=== PATIENT | female | born 1945 | race Two or more races ===

== ENCOUNTER 2024-04-17 16:23 | Emergency (ER) | payer OTHER ==
[~2024-04-17] VITALS: Ht 160 cm; Wt 40.0 kg
[2024-04-17 17:19] LABS: Basophils # (auto) 0.1 10 ^3/uL (0-0.2); Basophils % (auto) 0.7 % (0.0-2.0); Eosinophils # (auto) 0.4 10 ^3/uL (0-0.8); Eosinophils % (auto) 2.8 % (0.0-7.0); Hematocrit 32.7 % (36.0-46.0); Hemoglobin 10.6 g/dL (12.2-16.2); Lymphocytes % (auto) 16.2 % (10.0-50.0); Mean Corpuscular Hemoglobin 29.3 pg (28.0-32.0); Mean Corpuscular Hgb Conc. 32.5 g/dL (32.0-36.0); Mean Corpuscular Volume 90.2 fL (80.0-100.0); Monocytes % (auto) 8.4 % (0.0-12.0); Neutrophils # (auto) 8.9 10 ^3/uL (1.6-8.6); Neutrophils % (auto) 71.9 % (37.0-80.0); Nucleated Red Blood Cells % 0.1 %; Red Blood Cells 3.63 10^6/uL (4.0-5.20); White Blood Cell 12.4 10^3/uL (4.4-10.8)
[2024-04-17 17:33] LABS: INR 1.02 (0.9-1.15); Partial Thromboplastin Time 20.1 SEC (24.5-34.5); Prothrombin Time 10.8 sec (9.3-11.8)
[2024-04-17 17:35] LABS: Alanine Aminotransferase 19 U/L (7-40); Albumin 3.5 g/dL (3.2-4.8); Alkaline Phosphatase 57 U/L (46-116); Anion Gap 11 (5-15); Aspartate Aminotransferase 20 U/L (13-40); BUN/Creatinine Ratio 30.6 (10.0-20.0); Bilirubin, Total 0.3 mg/dL (0.2-1.0); Blood Alcohol < 3.0 mg/dL (<10); Blood Urea Nitrogen 30 mg/dL (9-23); Carbon Dioxide 21 mmol/L (20-30); Chloride 98 mmol/L (98-107); Glucose 118 mg/dL (74-106); Magnesium 1.3 mg/dL (1.6-2.6); Potassium 4.5 mmol/L (3.5-5.1); Sodium 130 mmol/L (136-145); Total Protein 5.3 g/dL (5.7-8.2)
[2024-04-17 17:48] VITALS: PULSE 83; RESP 12; O2SAT 97
[2024-04-17 17:53] LABS: Lactic Acid w/Reflex 5.2 mmol/L (0.4-2.0)
[2024-04-17] MEDS: SODIUM CHLORIDE 0.9% 1,550 ML IV ONE (18:13)
[2024-04-17 18:16] LABS: Urine Bacteria FEW /hpf (None Seen); Urine Blood Negative /uL (Negative); Urine Clarity Turbid (Clear); Urine Color Colorless (Yellow); Urine Hyaline Cast MOD /lpf (0 - 2); Urine Mucus FEW (None Seen); Urine Protein, UAD Negative (Negative); Urine Specific Gravity 1.011 (1.001-1.035); Urine Urobilinogen Normal (Negative); Urine WBC 109 /hpf (0 - 5); Urine pH 5.5 (5.0-9.0)
[2024-04-17 18:23] LABS: Amphetamine Screen, Urine Neg (NEGATIVE); Benzodiazephine Screen, Urine Neg (NEGATIVE)
[2024-04-17 18:24] LABS: Barbiturate Scree,Urine Neg (NEGATIVE); Cannabinoid Screen, Urine Neg (NEGATIVE); Cocaine Screen, Urine Neg (NEGATIVE); Opiate Scree,Urine Pos (NEGATIVE); Phencyclidine Screen, Urine Neg (NEGATIVE)
[2024-04-17] MEDS ORDERED: VANCOMYCIN PER PHARMACY 0 MG IV SCH (18:30)
[2024-04-17] MEDS: CIPROFLOXACIN 400MG/200ML 200 ML IV ONE (19:15)
[2024-04-17 19:30] VITALS: PULSE 82; RESP 17; O2SAT 95
[2024-04-17] MEDS ORDERED: VANCOMYCIN 1GM/200ML 200 ML IV ONE (21:00)
[2024-04-17] MEDS: VANCOMYCIN 750mg/150ml 150 ML IV SCH (21:09)
[2024-04-17] MEDS ORDERED: VANCOMYCIN 1GM/200ML 200 ML IV SCH (22:00)
[2024-04-18] MEDS: DEXTROSE (50%) 50ML SYRG IV ONE (04:39)
[2024-04-18] MEDS: DEXTROSE 50% SYRINGE 0 ML IV ONE (04:39)
[2024-04-18] MEDS: hydrALAZINE HCL 20 MG/ML VL IV ONE (05:00)
[2024-04-18 06:05] VITALS: BP 141/61; PULSE 95; RESP 18; TEMP 97.9; O2SAT 96
== END 2024-04-18 06:20 | disposition short-term general hospital (02) ==
LOC: ER 16:23 → EDBD 16:23 → ER 04-18 06:20
DX: G93.41 Metabolic encephalopathy (principal); A41.9 Sepsis, unspecified organism; I95.9 Hypotension, unspecified; N39.0 Urinary tract infection, site not specified
CPT/HCPCS: 36415; 70450; 71045; 80053; 80307; 80320; 81001; 83605; 83735; 84484; 85025; 85379; 85610; 85730; 87040; 87086; 87088; 87186; 93005; 96365; 96368; 96375; 99285; J0744; J3370; J7030; J7040; J7042

== ENCOUNTER 2024-05-17 11:53 | Inpatient (IN) | payer OTHER ==
[~2024-05-17] VITALS: Ht 152.4 cm; Wt 54.0 kg
[2024-05-17] MEDS: ALBUTEROL SULF 2.5 MG/0.5ML(0.5%) NEB SOLN NEB ONE (12:56)
[2024-05-17] MEDS: IPRATROPIUM BROM 0.5 MG/2.5ML INH SOL NEB ONE (12:56)
[2024-05-17 13:05] LABS: Basophils # (auto) 0 10 ^3/uL (0-0.2); Basophils % (auto) 0.3 % (0.0-2.0); Eosinophils # (auto) 0 10 ^3/uL (0-0.8); Hematocrit 40.8 % (36.0-46.0); Hemoglobin 12.9 g/dL (12.2-16.2); Lymphocytes # (auto) 1.1 10 ^3/uL (0.4-5.4); Lymphocytes % (auto) 8.3 % (10.0-50.0); Mean Corpuscular Hemoglobin 30.1 pg (28.0-32.0); Mean Corpuscular Hgb Conc. 31.6 g/dL (32.0-36.0); Mean Corpuscular Volume 95.4 fL (80.0-100.0); Monocytes # (auto) 0.9 10 ^3/uL (0-1.3); Monocytes % (auto) 6.6 % (0.0-12.0); Neutrophils # (auto) 11.6 10 ^3/uL (1.6-8.6); Neutrophils % (auto) 84.8 % (37.0-80.0); Red Blood Cells 4.28 10^6/uL (4.0-5.20); Red Cell Distribution Width 17.4 % (11.8-14.3); White Blood Cell 13.7 10^3/uL (4.4-10.8)
[2024-05-17 13:06] VITALS: PULSE 55; RESP 31; O2SAT 86
[2024-05-17] MEDS: methylPREDNISolone SOD SUCC 125 MG/2 ML VL IV ONE (13:12)
[2024-05-17] MEDS: SODIUM CHLORIDE 0.9% 1,550 ML IV ONE (13:21)
[2024-05-17 13:27] LABS: INR 1.06 (0.9-1.15); Partial Thromboplastin Time 24.2 SEC (24.5-34.5); Prothrombin Time 11.2 sec (9.3-11.8)
[2024-05-17 13:31] LABS: Alanine Aminotransferase 24 U/L (7-40); Albumin 4.6 g/dL (3.2-4.8); Alkaline Phosphatase 105 U/L (46-116); Anion Gap 24 (5-15); Aspartate Aminotransferase 41 U/L (13-40); BUN/Creatinine Ratio 38.8 (10.0-20.0); Bilirubin, Total 0.4 mg/dL (0.2-1.0); Calcium 9.8 mg/dL (8.7-10.4); Carbon Dioxide 14 mmol/L (20-30); Chloride 112 mmol/L (98-107); Glucose 338 mg/dL (74-106); Magnesium 2.3 mg/dL (1.6-2.6); Sodium 150 mmol/L (136-145)
[2024-05-17 13:32] LABS: Total Protein 8.1 g/dL (5.7-8.2)
[2024-05-17 13:36] LABS: Blood Urea Nitrogen 120 mg/dL (9-23)
[2024-05-17 13:37] LABS: Potassium 6.4 mmol/L (3.5-5.1)
[2024-05-17 13:38] LABS: Lactic Acid w/Reflex 3.6 mmol/L (0.4-2.0)
[2024-05-17 14:00] VITALS: BP 59/28; PULSE 55; RESP 31; TEMP 98; O2SAT 90
[2024-05-17] MEDS: SODIUM BICARB 8.4% 50Meq/50ml SYR Vial IV ONE ×2 (14:15→17:44)
[2024-05-17] MEDS: CALCIUM GLUC 1,000mg/50ml-NS 50 ML IV ONE (14:15)
[2024-05-17] MEDS: DEXTROSE (50%) 50ML SYRG IV ONE (14:16)
[2024-05-17] MEDS: InsuLIN REG 1unit/0.01ml Soln (100units/ml) IV ONE (14:17)
[2024-05-17] MEDS: ONDANSETRON HCL 4 MG/2 ML VIAL IV ONE (14:43)
[2024-05-17 15:10] LABS: COVID19 ANTIGEN SOFIA FIA NEGATIVE (NEGATIVE); Rapid Influenza A Negative (Negative); Rapid Influenza B Negative (Negative)
[2024-05-17] MEDS: NOREPINEPHRINE 8 MG/250ML KIT 250 ML IV SCH (15:13)
[2024-05-17] MEDS: PIPERACILLIN-TAZO 4.5GM 100 ML IV ONE (15:14)
[2024-05-17 16:48] VITALS: BP 122/52; PULSE 78; O2SAT 100
[2024-05-17] MEDS: VANCOMYCIN 1GM/200ML 200 ML IV ONE ×2 (16:50→17:19)
[2024-05-17 17:14] LABS: Base Excess -8.8 mmol/L (-2.0-2.0)
[2024-05-17] MEDS ORDERED: NITROGLYCERIN 0.4 MG SL TAB SL PRN (17:15)
[2024-05-17] MEDS ORDERED: VANCOMYCIN PER PHARMACY 0 MG IV SCH (17:15)
[2024-05-17] MEDS ORDERED: ACETAMINOPHEN 325 MG TAB PO PRN (17:15)
[2024-05-17] MEDS ORDERED: SODIUM CHLORIDE 0.9% 1,000 ML IV SCH (17:15)
[2024-05-17] MEDS: ENOXAPARIN SOD 100 MG/1 ML SYRINGE SC ONE (17:20)
[2024-05-17] MEDS ORDERED: DEXTROSE (50%) 50ML SYRG IV PRN (17:30)
[2024-05-17] MEDS: PANTOPRAZOLE 40 MG/10 ML VIAL INJ IV ONE (17:43)
[2024-05-17] MEDS: SOD CHL 0.45% 1,000 ML IV ONE (17:58)
[2024-05-17] MEDS ORDERED: DexAMETHasone SOD PHOS 10MG/1ML VIAL INJ IV SCH (18:00)
[2024-05-17] MEDS: DexAMETHasone SOD PHOS 10MG/1ML VIAL INJ IV SCH (18:03)
[2024-05-17] MEDS: IPRATROPIUM BROM 0.5 MG/2.5ML INH SOL NEB SCH (18:06)
[2024-05-17] MEDS: ALBUTEROL SULF 2.5 MG/0.5ML(0.5%) NEB SOLN NEB SCH (18:06)
[2024-05-17 18:07] VITALS: BP 117/30; PULSE 76; O2SAT 92
[2024-05-17] MEDS: ACCU-CHEK COMFORT CURVE STRIP VI SCH (18:08)
[2024-05-17] MEDS: INSULIN DRIP 100 UNIT/100ML 100 ML IV SCH (18:08)
[2024-05-17 18:54] LABS: Anion Gap 18 (5-15); Carbon Dioxide 20 mmol/L (20-30); Chloride 116 mmol/L (98-107); Potassium 5.2 mmol/L (3.5-5.1); Sodium 154 mmol/L (136-145)
[2024-05-17 18:55] LABS: Calcium 9.1 mg/dL (8.7-10.4)
[2024-05-17 18:56] LABS: INR 1.13 (0.9-1.15); Prothrombin Time 11.9 sec (9.3-11.8)
[2024-05-17 19:00] LABS: BUN/Creatinine Ratio 29.1 (10.0-20.0)
[2024-05-17 19:18] LABS: Magnesium 2.2 mg/dL (1.6-2.6)
[2024-05-17 19:20] LABS: Phosphorus 7.9 mg/dL (2.4-5.1)
[2024-05-17 19:28] LABS: Blood Urea Nitrogen 83 mg/dL (9-23); Glucose 475 mg/dL (74-106); Lactic Acid w/Reflex 3.5 mmol/L (0.4-2.0)
[2024-05-17 20:03] LABS: Urine Bacteria MOD /hpf (None Seen); Urine Blood 2+ /uL (Negative); Urine Clarity Ex.Turbid (Clear); Urine Color Light-Brown (Yellow); Urine Mucus FEW (None Seen); Urine Protein, UAD 1+ (Negative); Urine Specific Gravity 1.016 (1.001-1.035); Urine Urobilinogen Normal (Negative); Urine WBC 238 /hpf (0 - 5)
[2024-05-17 20:09] LABS: Creatinine, Urine 47.51 mg/dL (30.0-125.0)
[2024-05-17 20:11] VITALS: BP 63/18; PULSE 63; O2SAT 96
[2024-05-17] MEDS: CEFEPIME 2GM/50ML NS 50 ML IV SCH (20:43)
[2024-05-17 22:23] VITALS: BP 129/33; PULSE 102; O2SAT 97
[2024-05-17 23:37] LABS: Chloride 117 mmol/L (98-107); Potassium 5.3 mmol/L (3.5-5.1); Sodium 158 mmol/L (136-145)
[2024-05-17 23:38] LABS: Anion Gap 13 (5-15); Carbon Dioxide 28 mmol/L (20-30)
[2024-05-17 23:43] LABS: BUN/Creatinine Ratio 34.3 (10.0-20.0); Glucose 313 mg/dL (74-106)
[2024-05-17 23:45] LABS: Blood Urea Nitrogen 103 mg/dL (9-23)
[2024-05-18] VITALS (15 sets, daily range): BP systolic 110–142; BP diastolic 30–46; PULSE 64–111; RESP 16–30; O2SAT 87–100
[2024-05-18] MEDS: DexAMETHasone SOD PHOS 10MG/1ML VIAL INJ IV SCH (02:07)
[2024-05-18 06:18] LABS: Alanine Aminotransferase 187 U/L (7-40); Albumin 3.9 g/dL (3.2-4.8); Alkaline Phosphatase 93 U/L (46-116); Anion Gap 18 (5-15); Aspartate Aminotransferase 390 U/L (13-40); BUN/Creatinine Ratio 26.7 (10.0-20.0); Carbon Dioxide 22 mmol/L (20-30); Chloride 118 mmol/L (98-107); Glucose 177 mg/dL (74-106); Sodium 158 mmol/L (136-145)
[2024-05-18 06:19] LABS: Bilirubin, Total 0.2 mg/dL (0.2-1.0)
[2024-05-18 06:33] LABS: Blood Urea Nitrogen 83 mg/dL (9-23); Potassium 5.6 mmol/L (3.5-5.1)
[2024-05-18] MEDS: VASOPRESSIN 20 UNITS in SODIUM CHL 0.9% 99 ML IV SCH (07:25)
[2024-05-18] MEDS: SODIUM ZIRCONIUM CYCL 10 GM PAK PO ONE (08:15)
[2024-05-18] MEDS ORDERED: SOD CHL 0.45% 1,000 ML IV SCH (08:15)
[2024-05-18] MEDS: ALBUTEROL SULF 2.5 MG/0.5ML(0.5%) NEB SOLN NEB ONE (08:15)
[2024-05-18] MEDS: CALCIUM GLUC 1,000mg/50ml-NS 50 ML IV ONE (08:17)
[2024-05-18] MEDS ORDERED: LACTATED RINGER'S 1,000 ML IV SCH (08:30)
[2024-05-18] MEDS: SODIUM BICARB 8.4% 50Meq/50ml SYR INJ IV ONE ×2 (08:31→09:38)
[2024-05-18] MEDS: DEXTROSE (50%) 50ML SYRG IV ONE (08:32)
[2024-05-18 08:47] LABS: Basophils # (auto) 0 10 ^3/uL (0-0.2); Basophils % (auto) 0.1 % (0.0-2.0); Eosinophils # (auto) 0 10 ^3/uL (0-0.8); Eosinophils % (auto) 0.1 % (0.0-7.0); Hematocrit 35.2 % (36.0-46.0); Hemoglobin 11.2 g/dL (12.2-16.2); Lymphocytes % (auto) 4.9 % (10.0-50.0); Mean Corpuscular Hemoglobin 29.8 pg (28.0-32.0); Mean Corpuscular Hgb Conc. 31.8 g/dL (32.0-36.0); Mean Corpuscular Volume 93.8 fL (80.0-100.0); Monocytes # (auto) 1.5 10 ^3/uL (0-1.3); Monocytes % (auto) 7.4 % (0.0-12.0); Neutrophils # (auto) 17.4 10 ^3/uL (1.6-8.6); Neutrophils % (auto) 87.5 % (37.0-80.0); Red Blood Cells 3.75 10^6/uL (4.0-5.20); Red Cell Distribution Width 16.8 % (11.8-14.3); White Blood Cell 19.9 10^3/uL (4.4-10.8)
[2024-05-18] MEDS: INSULIN LANTUS (GLARGINE) 1 /0.01ml (100units/ml) SC ONE (09:38)
[2024-05-18 09:46] LABS: Platelet Estimate Decreased
[2024-05-18] MEDS: D5W/SOD CHL 0.45% 1,000 ML IV SCH (09:54)
[2024-05-18] MEDS: PANTOPRAZOLE 40 MG/10 ML VIAL INJ IV SCH (10:03)
[2024-05-18] MEDS ORDERED: D5W 5% 1,000 ML IV SCH (12:00)
[2024-05-18] MEDS: SODIUM CHLORIDE 0.9% 1,000 ML IV ONE (12:29)
[2024-05-18] MEDS: D5W 5% 1,000 ML IV SCH ×2 (12:41→14:15)
[2024-05-18] MEDS: DOXYCYCLINE 100MG/250ML 250 ML IV SCH (12:42)
[2024-05-18 13:06] LABS: Basophils # (auto) 0 10 ^3/uL (0-0.2); Basophils % (auto) 0.1 % (0.0-2.0); Eosinophils # (auto) 0 10 ^3/uL (0-0.8); Eosinophils % (auto) 0.1 % (0.0-7.0); Lymphocytes # (auto) 0.8 10 ^3/uL (0.4-5.4); Lymphocytes % (auto) 3.9 % (10.0-50.0); Mean Corpuscular Hemoglobin 29.9 pg (28.0-32.0); Mean Corpuscular Hgb Conc. 32.4 g/dL (32.0-36.0); Mean Corpuscular Volume 92.2 fL (80.0-100.0); Monocytes # (auto) 1.8 10 ^3/uL (0-1.3); Monocytes % (auto) 8.6 % (0.0-12.0); Neutrophils # (auto) 18.1 10 ^3/uL (1.6-8.6); Neutrophils % (auto) 87.3 % (37.0-80.0); Red Blood Cells 3.69 10^6/uL (4.0-5.20); Red Cell Distribution Width 16.7 % (11.8-14.3); White Blood Cell 20.7 10^3/uL (4.4-10.8)
[2024-05-18 13:17] LABS: Chloride 119 mmol/L (98-107); Potassium 4.5 mmol/L (3.5-5.1)
[2024-05-18 13:18] LABS: Anion Gap 17 (5-15); Calcium 9.3 mg/dL (8.7-10.4); Carbon Dioxide 25 mmol/L (20-30)
[2024-05-18 13:23] LABS: BUN/Creatinine Ratio 33.7 (10.0-20.0); Glucose 270 mg/dL (74-106)
[2024-05-18 13:41] LABS: Sodium 161 mmol/L (136-145)
[2024-05-18 13:42] LABS: Blood Urea Nitrogen 98 mg/dL (9-23)
[2024-05-18] MEDS: AMIODARONE BOLUS KIT 100 ML IV ONE (13:49)
[2024-05-18 14:03] LABS: Lipase 33 U/L (12-53)
[2024-05-18] MEDS: AMIODARONE 450mg/250ml AE 250 ML IV SCH ×2 (14:10→21:36)
[2024-05-18] MEDS ORDERED: ENOXAPARIN SOD 60 MG/0.6 ML SYRINGE SC SCH (17:00)
[2024-05-18] MEDS: INSULIN DRIP 100 UNIT/100ML 100 ML IV SCH (17:02)
[2024-05-18] MEDS: LIDOCAINE 1% (LOCAL ANESTH.) PF 5ml SDV ID ONE (17:54)
[2024-05-18 18:38] LABS: Chloride 115 mmol/L (98-107); Potassium 3.2 mmol/L (3.5-5.1)
[2024-05-18 18:39] LABS: Anion Gap 13 (5-15); Calcium 7.9 mg/dL (8.7-10.4); Carbon Dioxide 23 mmol/L (20-30)
[2024-05-18 18:44] LABS: BUN/Creatinine Ratio 33.3 (10.0-20.0)
[2024-05-18 19:22] LABS: Sodium 151 mmol/L (136-145)
[2024-05-18 19:24] LABS: Blood Urea Nitrogen 85 mg/dL (9-23); Glucose 425 mg/dL (74-106)
[2024-05-18] MEDS: SODIUM CHLOR 0.9% PF (SALINE LOCK) 10ML VIAL/SYR IV SCH (22:31)
[2024-05-19] VITALS (13 sets, daily range): PULSE 90–111; RESP 16–26; O2SAT 91–99
[2024-05-19 06:32] LABS: Basophils # (auto) 0 10 ^3/uL (0-0.2); Eosinophils # (auto) 0 10 ^3/uL (0-0.8)
[2024-05-19 06:34] LABS: Anion Gap 13 (5-15); Carbon Dioxide 21 mmol/L (20-30); Chloride 109 mmol/L (98-107); Potassium 2.9 mmol/L (3.5-5.1); Sodium 143 mmol/L (136-145)
[2024-05-19 06:35] LABS: Calcium 7.8 mg/dL (8.7-10.4)
[2024-05-19 06:37] LABS: Basophils % (auto) 0.1 % (0.0-2.0); Eosinophils % (auto) 0.1 % (0.0-7.0); Hematocrit 29.4 % (36.0-46.0); Hemoglobin 9.7 g/dL (12.2-16.2); Lymphocytes # (auto) 0.7 10 ^3/uL (0.4-5.4); Lymphocytes % (auto) 4.1 % (10.0-50.0); Mean Corpuscular Hgb Conc. 32.9 g/dL (32.0-36.0); Mean Corpuscular Volume 91.1 fL (80.0-100.0); Monocytes # (auto) 0.7 10 ^3/uL (0-1.3); Monocytes % (auto) 4.1 % (0.0-12.0); Neutrophils % (auto) 91.6 % (37.0-80.0); Nucleated Red Blood Cells % 0.8 %; Red Blood Cells 3.23 10^6/uL (4.0-5.20); Red Cell Distribution Width 16.7 % (11.8-14.3); White Blood Cell 17.4 10^3/uL (4.4-10.8)
[2024-05-19 06:39] LABS: Creatine Kinase IFCC 654 U/L (34-145); Uric Acid 10.3 mg/dL (3.1-7.8)
[2024-05-19 06:40] LABS: Glucose 271 mg/dL (74-106)
[2024-05-19] MEDS: INSULIN DRIP 100 UNIT/100ML 100 ML IV SCH (06:40)
[2024-05-19 06:45] LABS: Blood Urea Nitrogen 71 mg/dL (9-23)
[2024-05-19] MEDS ORDERED: INSULIN LANTUS (GLARGINE) 1 /0.01ml (100units/ml) SC SCH (07:00)
[2024-05-19] MEDS ORDERED: DEXTROSE (50%) 50ML SYRG IV PRN (07:15)
[2024-05-19] MEDS: POTASSIUM CHL 20MEQ/100ML 100 ML IV SCH (07:15)
[2024-05-19] MEDS: SOD CHL 0.45% 1,000 ML IV SCH ×2 (07:15→16:10)
[2024-05-19 07:17] LABS: BUN/Creatinine Ratio 31.1 (10.0-20.0)
[2024-05-19] MEDS: INSULIN LANTUS (GLARGINE) 1 /0.01ml (100units/ml) SC SCH (08:00)
[2024-05-19] MEDS: ACCU-CHEK COMFORT CURVE STRIP VI SCH (08:00)
[2024-05-19] MEDS: InsuLIN REG 1unit/0.01ml Soln (100units/ml) SC SCH (08:00)
[2024-05-19] MEDS: ENOXAPARIN SOD 30 MG/0.3 ML SYRINGE SC SCH (10:00)
[2024-05-19] MEDS: METOPROLOL TARTRATE 1MG/1ML-5ML VIAL IV ONE (11:52)
[2024-05-19 12:23] LABS: Urine Bacteria FEW /hpf (None Seen); Urine Blood 2+ /uL (Negative); Urine Budding Yeast MODERATE /hpf (None Seen); Urine Clarity Turbid (Clear); Urine Color Colorless (Yellow); Urine Protein, UAD 1+ (Negative); Urine Specific Gravity 1.014 (1.001-1.035); Urine Urobilinogen Normal (Negative); Urine WBC 104 /hpf (0 - 5); Urine pH 5.5 (5.0-9.0)
[2024-05-19 12:33] LABS: Creatinine, Urine 33.32 mg/dL (30.0-125.0)
[2024-05-19 13:33] LABS: Anion Gap 11 (5-15); Carbon Dioxide 20 mmol/L (20-30); Chloride 109 mmol/L (98-107); Potassium 3.6 mmol/L (3.5-5.1); Sodium 140 mmol/L (136-145)
[2024-05-19 13:34] LABS: Calcium 7.6 mg/dL (8.7-10.4)
[2024-05-19 13:38] LABS: Glucose 273 mg/dL (74-106)
[2024-05-19 13:39] LABS: BUN/Creatinine Ratio 36.7 (10.0-20.0); Blood Urea Nitrogen 69 mg/dL (9-23)
[2024-05-19 13:53] LABS: Magnesium 1.2 mg/dL (1.6-2.6)
[2024-05-19] MEDS: MAGNESIUM SULFATE 1GM/100ML 100 ML IV SCH ×2 (16:23→19:07)
[2024-05-19] MEDS: IPRATROPIUM BROM 0.5 MG/2.5ML INH SOL NEB SCH (18:37)
[2024-05-19] MEDS: LEVALBUTEROL HCL 1.25 MG/3 ML NEB NEB SCH (18:38)
[2024-05-19] MEDS: LABETALOL HCL 20 MG/4 ML VL IV PRN (23:35)
[2024-05-20] VITALS (14 sets, daily range): BP systolic 156; BP diastolic 70; PULSE 72–116; RESP 18–36; TEMP 98.5; O2SAT 93–100
[2024-05-20 04:51] LABS: Basophils # (auto) 0 10 ^3/uL (0-0.2); Eosinophils # (auto) 0 10 ^3/uL (0-0.8); Lymphocytes # (auto) 0.7 10 ^3/uL (0.4-5.4); Monocytes # (auto) 0.4 10 ^3/uL (0-1.3); White Blood Cell 15.1 10^3/uL (4.4-10.8)
[2024-05-20 04:52] LABS: Chloride 104 mmol/L (98-107); Potassium 2.9 mmol/L (3.5-5.1)
[2024-05-20 04:53] LABS: Anion Gap 10 (5-15); Basophils % (auto) 0.2 % (0.0-2.0); Carbon Dioxide 18 mmol/L (20-30); Hematocrit 25.8 % (36.0-46.0); Hemoglobin 8.6 g/dL (12.2-16.2); Lymphocytes % (auto) 4.5 % (10.0-50.0); Mean Corpuscular Hemoglobin 30.1 pg (28.0-32.0); Mean Corpuscular Hgb Conc. 33.3 g/dL (32.0-36.0); Mean Corpuscular Volume 90.4 fL (80.0-100.0); Monocytes % (auto) 2.5 % (0.0-12.0); Neutrophils % (auto) 92.8 % (37.0-80.0); Nucleated Red Blood Cells % 0.9 %; Red Blood Cells 2.86 10^6/uL (4.0-5.20); Red Cell Distribution Width 16.5 % (11.8-14.3)
[2024-05-20 04:57] LABS: Sodium 132 mmol/L (136-145)
[2024-05-20 04:59] LABS: BUN/Creatinine Ratio 29.7 (10.0-20.0); Magnesium 1.8 mg/dL (1.6-2.6)
[2024-05-20 05:01] LABS: Phosphorus 1.6 mg/dL (2.4-5.1)
[2024-05-20 05:12] LABS: Blood Urea Nitrogen 46 mg/dL (9-23); Glucose 415 mg/dL (74-106)
[2024-05-20 05:47] LABS: Chloride 110 mmol/L (98-107); Potassium 3.4 mmol/L (3.5-5.1); Sodium 139 mmol/L (136-145)
[2024-05-20 05:48] LABS: Anion Gap 10 (5-15); Carbon Dioxide 19 mmol/L (20-30)
[2024-05-20 05:49] LABS: Calcium 7.7 mg/dL (8.7-10.4)
[2024-05-20 05:53] LABS: BUN/Creatinine Ratio 27.8 (10.0-20.0); Blood Urea Nitrogen 44 mg/dL (9-23); Glucose 176 mg/dL (74-106)
[2024-05-20] MEDS: cloNIDine 0.1 mg/24hr 7 DAY PATCH TD ONE (09:45)
[2024-05-20] MEDS: MORPHINE SULFATE INJ 2 MG/ml SYRG IV PRN (09:50)
[2024-05-20] MEDS: ONDANSETRON HCL 4 MG/2 ML VIAL IV PRN (09:51)
[2024-05-20] MEDS: POTASSIUM CHL 20MEQ/100ML 100 ML IV ONE (10:23)
[2024-05-20] MEDS ORDERED: CLINIMIX PER PHARMACY 0 ML IV SCH (10:30)
[2024-05-20] MEDS ORDERED: MORPHINE SULFATE INJ 2 MG/ml SYRG IV PRN (10:30)
[2024-05-20] MEDS: METOPROLOL TARTRATE 25 MG TAB PO SCH (10:30)
[2024-05-20 10:37] LABS: Basophils # (auto) 0 10 ^3/uL (0-0.2); Eosinophils # (auto) 0 10 ^3/uL (0-0.8); Eosinophils % (auto) 0.1 % (0.0-7.0); Hematocrit 30.5 % (36.0-46.0); Hemoglobin 9.9 g/dL (12.2-16.2); Lymphocytes # (auto) 0.6 10 ^3/uL (0.4-5.4); Lymphocytes % (auto) 3.9 % (10.0-50.0); Mean Corpuscular Hemoglobin 28.9 pg (28.0-32.0); Mean Corpuscular Hgb Conc. 32.4 g/dL (32.0-36.0); Mean Corpuscular Volume 89.2 fL (80.0-100.0); Monocytes # (auto) 0.5 10 ^3/uL (0-1.3); Monocytes % (auto) 2.8 % (0.0-12.0); Neutrophils # (auto) 15.1 10 ^3/uL (1.6-8.6); Neutrophils % (auto) 93.2 % (37.0-80.0); Nucleated Red Blood Cells % 0.8 %; Red Blood Cells 3.41 10^6/uL (4.0-5.20); Red Cell Distribution Width 15.7 % (11.8-14.3); White Blood Cell 16.2 10^3/uL (4.4-10.8)
[2024-05-20] MEDS: ERTAPENEM SOD INJ 0.5 GM in SODIUM CHL 0.9% 50 ML IV SCH (11:30)
[2024-05-20] MEDS ORDERED: CIPR500T4 PO (18:41)
[2024-05-20] MEDS ORDERED: LISI-285 (18:41)
[2024-05-20] MEDS ORDERED: CYCL0.058 EACHEYE (18:41)
[2024-05-20] MEDS ORDERED: CLOT1CRE7 TOP (18:41)
[2024-05-20] MEDS ORDERED: ALEN70TA74 PO (18:41)
[2024-05-20] MEDS ORDERED: CICL160A2 INH (18:41)
[2024-05-20] MEDS ORDERED: ALBU1AER4 INH (18:41)
[2024-05-20] MEDS ORDERED: HYDR-4798 (18:41)
[2024-05-20] MEDS ORDERED: GABA-1250 PO (18:41)
[2024-05-20] MEDS ORDERED: TOPI25TA84 PO (18:41)
[2024-05-20] MEDS ORDERED: OXYB5TAB14 PO (18:41)
[2024-05-20] MEDS ORDERED: GLIP5TAB21 PO (18:41)
[2024-05-20] MEDS ORDERED: TRI05TP TOP (18:41)
[2024-05-20] MEDS ORDERED: ATEN50TA PO (18:41)
[2024-05-20] MEDS ORDERED: ATOR40TA52 PO (18:41)
[2024-05-20] MEDS ORDERED: CICL8SOL21 TOP (18:41)
[2024-05-20] MEDS ORDERED: CLOB0.055 TOP (18:41)
[2024-05-20] MEDS ORDERED: METF-372 PO (18:41)
[2024-05-20] MEDS ORDERED: OMEP1CAP70 PO (18:41)
[2024-05-20] MEDS ORDERED: ASPI81CH59 PO (20:02)
[2024-05-20] MEDS: SODIUM PHOSPHATES 20 MEQ in SODIUM CHL 0.9% 100 ML IV ONE (20:25)
[2024-05-20] MEDS: AMINO ACID INFUSION IN D10W 1,000 ML IV SCH (20:32)
[2024-05-21] VITALS (15 sets, daily range): BP systolic 158–167; BP diastolic 67–93; PULSE 70–84; RESP 14–20; TEMP 96.9–99.1; O2SAT 95–100
[2024-05-21 07:48] LABS: Alanine Aminotransferase 197 U/L (7-40); Alkaline Phosphatase 77 U/L (46-116); Anion Gap 8 (5-15); BUN/Creatinine Ratio 33.3 (10.0-20.0); Carbon Dioxide 17 mmol/L (20-30); Chloride 100 mmol/L (98-107)
[2024-05-21 07:49] LABS: Albumin 2.3 g/dL (3.2-4.8); Aspartate Aminotransferase 137 U/L (13-40); Bilirubin, Total 0.4 mg/dL (0.2-1.0); Total Protein 4.3 g/dL (5.7-8.2)
[2024-05-21 07:58] LABS: Blood Urea Nitrogen 31 mg/dL (9-23); Sodium 125 mmol/L (136-145)
[2024-05-21 08:00] LABS: Potassium 2.3 mmol/L (3.5-5.1)
[2024-05-21 08:01] LABS: Calcium 5.9 mg/dL (8.7-10.4); Glucose 690 mg/dL (74-106)
[2024-05-21] MEDS ORDERED: LABETALOL HCL 20 MG/4 ML VL IV PRN (09:45)
[2024-05-21] MEDS: AMIODARONE HCL 200 MG TAB PO SCH (10:00)
[2024-05-21 10:25] LABS: Potassium 2.9 mmol/L (3.5-5.1); Sodium 141 mmol/L (136-145)
[2024-05-21 10:26] LABS: Anion Gap 11 (5-15); Calcium 7.3 mg/dL (8.7-10.4); Carbon Dioxide 20 mmol/L (20-30)
[2024-05-21 10:31] LABS: BUN/Creatinine Ratio 33.3 (10.0-20.0); Blood Urea Nitrogen 31 mg/dL (9-23); Glucose 205 mg/dL (74-106)
[2024-05-21 10:33] LABS: Chloride 110 mmol/L (98-107)
[2024-05-21] MEDS: FUROSEMIDE 20 MG/2 ML VIAL IV ONE (10:52)
[2024-05-21] MEDS: LABETALOL HCL 20 MG/4 ML VL IV ONE (10:52)
[2024-05-21 11:22] LABS: Basophils # (auto) 0 10 ^3/uL (0-0.2); Eosinophils # (auto) 0 10 ^3/uL (0-0.8); Eosinophils % (auto) 0.1 % (0.0-7.0); Hematocrit 23.1 % (36.0-46.0); Hemoglobin 7.3 g/dL (12.2-16.2); Lymphocytes # (auto) 0.5 10 ^3/uL (0.4-5.4); Lymphocytes % (auto) 4.2 % (10.0-50.0); Mean Corpuscular Hemoglobin 29.4 pg (28.0-32.0); Mean Corpuscular Hgb Conc. 31.6 g/dL (32.0-36.0); Mean Corpuscular Volume 93.2 fL (80.0-100.0); Monocytes # (auto) 0.3 10 ^3/uL (0-1.3); Monocytes % (auto) 2.2 % (0.0-12.0); Neutrophils % (auto) 93.5 % (37.0-80.0); Nucleated Red Blood Cells % 0.5 %; Red Blood Cells 2.48 10^6/uL (4.0-5.20); Red Cell Distribution Width 17.5 % (11.8-14.3); White Blood Cell 12.8 10^3/uL (4.4-10.8)
[2024-05-21] MEDS ORDERED: ENOXAPARIN SOD 60 MG/0.6 ML SYRINGE SC ONE (13:15)
[2024-05-21] MEDS: cloNIDine 0.1 mg/24hr 7 DAY PATCH TD ONE (14:07)
[2024-05-21] MEDS: POTASSIUM CHL 20MEQ/100ML 100 ML IV SCH (14:16)
[2024-05-21] MEDS ORDERED: DEXTROSE (50%) 50ML SYRG IV SCH (16:00)
[2024-05-21] MEDS: MAGNESIUM SULFATE 1GM/100ML 100 ML IV SCH (17:41)
[2024-05-21] MEDS: ACCU-CHEK COMFORT CURVE STRIP VI SCH (17:42)
[2024-05-21] MEDS: InsuLIN REG 1unit/0.01ml Soln (100units/ml) SC SCH (18:04)
[2024-05-21] MEDS: LABETALOL HCL 20 MG/4 ML VL IV PRN (18:31)
[2024-05-21 21:53] LABS: % Iron Saturation 26.7 % (15-50)
[2024-05-22] VITALS (16 sets, daily range): BP systolic 148–181; BP diastolic 71–90; PULSE 60–98; RESP 14–20; TEMP 96.2–98.6; O2SAT 93–100
[2024-05-22 06:33] LABS: Basophils # (auto) 0 10 ^3/uL (0-0.2); Basophils % (auto) 0.1 % (0.0-2.0); Eosinophils # (auto) 0 10 ^3/uL (0-0.8); Eosinophils % (auto) 0.2 % (0.0-7.0); Hematocrit 31.1 % (36.0-46.0); Hemoglobin 10.3 g/dL (12.2-16.2); Lymphocytes # (auto) 0.8 10 ^3/uL (0.4-5.4); Lymphocytes % (auto) 4.5 % (10.0-50.0); Mean Corpuscular Hemoglobin 29.3 pg (28.0-32.0); Mean Corpuscular Hgb Conc. 33.1 g/dL (32.0-36.0); Mean Corpuscular Volume 88.5 fL (80.0-100.0); Monocytes # (auto) 0.6 10 ^3/uL (0-1.3); Monocytes % (auto) 3.3 % (0.0-12.0); Neutrophils % (auto) 91.9 % (37.0-80.0); Nucleated Red Blood Cells % 0.7 %; Red Blood Cells 3.52 10^6/uL (4.0-5.20); Red Cell Distribution Width 15.8 % (11.8-14.3); White Blood Cell 17.4 10^3/uL (4.4-10.8)
[2024-05-22 06:39] LABS: Alanine Aminotransferase 247 U/L (7-40); Alkaline Phosphatase 146 U/L (46-116); Anion Gap 12 (5-15); BUN/Creatinine Ratio 36.1 (10.0-20.0); Blood Urea Nitrogen 26 mg/dL (9-23); Calcium 7.9 mg/dL (8.7-10.4); Carbon Dioxide 22 mmol/L (20-30); Chloride 106 mmol/L (98-107); Glucose 189 mg/dL (74-106); Magnesium 1.7 mg/dL (1.6-2.6); Potassium 2.6 mmol/L (3.5-5.1); Sodium 140 mmol/L (136-145)
[2024-05-22 06:40] LABS: Albumin 3.2 g/dL (3.2-4.8)
[2024-05-22 06:41] LABS: Aspartate Aminotransferase 120 U/L (13-40); Bilirubin, Total 0.6 mg/dL (0.2-1.0); Phosphorus 1.5 mg/dL (2.4-5.1); Total Protein 6.1 g/dL (5.7-8.2)
[2024-05-22] MEDS: POTASSIUM PHOSPHATE 44 MEQ in D5W 5% 250 ML IV ONE (11:00)
[2024-05-22] MEDS: ENOXAPARIN SOD 60 MG/0.6 ML SYRINGE SC SCH (11:01)
[2024-05-22] MEDS: MAGNESIUM SULFATE 1GM/100ML 100 ML IV ONE (14:00)
[2024-05-22] MEDS: ERTAPENEM SOD INJ 0.5 GM in SODIUM CHL 0.9% 50 ML IV ONE (17:00)
[2024-05-22] MEDS ORDERED: POTASSIUM CHL 20MEQ/100ML 100 ML IV ONE (20:00)
[2024-05-23] MEDS ORDERED: ERTAPENEM SOD INJ 1 GM in SODIUM CHL 0.9% 50 ML IV SCH (10:00)
== END 2024-05-22 20:40 | disposition short-term general hospital (02) | DRG 871 ==
LOC: ER 11:53 → EDBD 11:53 → TELE 17:10 → TELE-WESTW 05-20 17:50 → TELE-EAST 05-21 03:06
PROVIDERS: ADMIT Nurse Practitioner Family; ATTEND Nurse Practitioner Acute Care
PROC: 5A09357 Assistance with Respiratory Ventilation, Less than 24 Consecutive Hours, Continuous Positive Airway Pressure (ICD-10-PCS; principal; 2024-05-17)
PROC: 05H933Z Insertion of Infusion Device into Right Brachial Vein, Percutaneous Approach (ICD-10-PCS; 2024-05-17)
PROC: B54MZZA Ultrasonography of Right Upper Extremity Veins, Guidance (ICD-10-PCS; 2024-05-17)
PROC: 02HV33Z Insertion of Infusion Device into Superior Vena Cava, Percutaneous Approach (ICD-10-PCS; 2024-05-18)
PROC: B548ZZA Ultrasonography of Superior Vena Cava, Guidance (ICD-10-PCS; 2024-05-18)
DX: A41.9 Sepsis, unspecified organism (principal); E11.10 Type 2 diabetes mellitus with ketoacidosis without coma; J96.01 Acute respiratory failure with hypoxia; R65.21 Severe sepsis with septic shock; G93.41 Metabolic encephalopathy; J15.9 Unspecified bacterial pneumonia; J15.69 Pneumonia due to other Gram-negative bacteria; N17.0 Acute kidney failure with tubular necrosis; E87.0 Hyperosmolality and hypernatremia; N39.0 Urinary tract infection, site not specified; R64 Cachexia; Z68.1 Body mass index [BMI] 19.9 or less, adult; M62.82 Rhabdomyolysis; I48.20 Chronic atrial fibrillation, unspecified; Z20.822 Contact with and (suspected) exposure to COVID-19; E87.5 Hyperkalemia; Z66 Do not resuscitate; J45.909 Unspecified asthma, uncomplicated; I12.9 Hypertensive chronic kidney disease with stage 1 through stage 4 chronic kidney disease, or unspecified chronic kidney disease; R62.7 Adult failure to thrive; D69.6 Thrombocytopenia, unspecified; E11.22 Type 2 diabetes mellitus with diabetic chronic kidney disease; N18.9 Chronic kidney disease, unspecified; E11.649 Type 2 diabetes mellitus with hypoglycemia without coma; Z86.73 Personal history of transient ischemic attack (TIA), and cerebral infarction without residual deficits; Z74.01 Bed confinement status; Z85.07 Personal history of malignant neoplasm of pancreas; Z79.4 Long term (current) use of insulin
CPT/HCPCS: 36415; 36569; 36600; 70450; 71045; 71250; 74176; 80048; 80053; 80202; 81001; 82010; 82040; 82550; 82570; 82728; 82805; 82962; 83540; 83550; 83605; 83690; 83735; 83880; 83930; 83935; 84100; 84300; 84443; 84484; 84550; 85025; 85379; 85610; 85730; 86301; 87040; 87081; 87086; 87088; 87186; 87426; 87804; 93005; 93306; 93970; 94640; 94644; 94660; 96365; 96367; 96368; 96375; 97163; 99291; G0378; J0692; J1100; J1335; J1815; J2405; J2470; J2543; J3480; J3490; J7060